=== PATIENT | female | born 1960 | race Caucasian/White ===

== ENCOUNTER 2019-06-07 14:49 | Emergency (ER) | payer MEDICARE, MEDICAID ==
[~2019-06-07] VITALS: Ht 172.7 cm; Wt 145.0 kg
[~2019-06-07 14:49] MED LIST: MELO-100 PO; PANT-47 PO; PROP40TA72 PO; VENL-190 PO
--- NOTE | 2019-06-07 14:57 | NUR ---
Spoke to Dr. Santos to see if we are calling it stroke alert, said no at this time since there are couple of things that's contributing to patient's symptoms.
[2019-06-07] MEDS ORDERED: diphenhydrAMINE 50 mg/ml inj IV ONE (15:05)
[2019-06-07] MEDS ORDERED: proCHLORperazine 10 MG/2 ml inj IV ONE (15:05)
--- NOTE | 2019-06-07 15:15 | NUR ---
Last seen normal was yesterday 1630, aware.
--- NOTE | 2019-06-07 15:18 | NUR ---
dr. ley at bedside,called level 1 stroke alert. Aylin Stroke RN at bedside.
[2019-06-07 15:29] LABS: BASOPHILS % (AUTO) 0.7 % (0-1); EOSINOPHILS # (AUTO) 0.1 X10'3 (0-0.9); EOSINOPHILS % (AUTO) 1.6 % (0-6); HEMATOCRIT 40.6 % (35.0-45.0); HEMOGLOBIN 13.6 g/dl (12.0-16.0); LYMPHOCYTES # (AUTO) 2.1 X10'3 (1.1-4.8); LYMPHOCYTES % (AUTO) 34.2 % (21-51); MEAN CORPUSCULAR HEMOGLOBIN 31.4 PG (27.0-31.0); MEAN CORPUSCULAR HGB CONC 33.5 g/dL (33.0-36.5); MEAN CORPUSCULAR VOLUME 93.5 FL (78-98); MEAN PLATELET VOLUME 7.8 FL (7.4-10.4); MONOCYTES # (AUTO) 0.5 X10'3 (0-0.9); MONOCYTES % (AUTO) 8.8 % (2-12); NEUTROPHILS # (AUTO) 3.3 X10'3 (1.8-7.7); NEUTROPHILS % (AUTO) 54.7 % (42-75); PLATELET COUNT 260 X10'3 (140-440); RED BLOOD COUNT 4.34 X10'6 (4.20-5.60); RED CELL DISTRIBUTION WIDTH 13.5 % (11.5-14.5); WHITE BLOOD COUNT 6.1 X10'3 (4.5-11.0)
--- NOTE | 2019-06-07 15:40 | NUR ---
BACK FROM MRI
[2019-06-07 15:41] LABS: ALANINE AMINOTRANSFERASE 22 U/L (12-78); ALBUMIN 3.4 G/DL (3.4-5.0); ALKALINE PHOSPHATASE 75 IU/L (46-116); ANION GAP 7 (8-16); ASPARTATE AMINO TRANSFERASE 10 U/L (10-37); BILIRUBIN,TOTAL 0.3 MG/DL (0.1-1.0); BLOOD UREA NITROGEN 23 MG/DL (7-18); BUN/CREATININE RATIO 18.7 (6.6-38.0); CHLORIDE 108 MMOL/L (99-107); CREATININE 1.23 MG/DL (0.40-0.90); GLUCOSE 87 MG/DL (70-104); POTASSIUM 4.8 MMOL/L (3.5-5.1); SODIUM 142 MMOL/L (135-145); TOTAL CARBON DIOXIDE 27.5 MMOL/L (24-32); TOTAL PROTEIN 6.9 G/DL (6.4-8.2); eGFR 45 ML/MIN
[2019-06-07] MEDS ORDERED: morphine 4 MG/ML inj SYRINge IV ONE (16:00)
[2019-06-07 16:10] LABS: URINE AMPHETAMINE SCREEN NEGATIVE (Neg); URINE BARBITUATE SCREEN NEGATIVE (Neg); URINE BENZODIAZEPINES SCREEN NEGATIVE (Neg); URINE CANNABINOID SCREEN NEGATIVE (Neg); URINE COCAINE SCREEN NEGATIVE (Neg); URINE METHADONE SCREEN NEGATIVE (Neg); URINE OPIATE SCREEN POSITIVE (Neg); URINE PHENCYCLIDINE SCREEN NEGATIVE (Neg)
[2019-06-07] MEDS ORDERED: NYSPWD TP (16:36)
[2019-06-07] MEDS ORDERED: NITR0.4T51 SL (16:37)
[2019-06-07] MEDS ORDERED: ASPI-611 PO (16:37)
[2019-06-07] MEDS ORDERED: MELO15TA13 PO (16:38)
[2019-06-07] MEDS ORDERED: LISI-600 PO (16:41)
[2019-06-07] MEDS ORDERED: CARB-87 PO (16:42)
[2019-06-07] MEDS ORDERED: GABA-532 PO (16:43)
[2019-06-07] MEDS ORDERED: DICL75TA5 PO (16:44)
[2019-06-07] MEDS ORDERED: VENL75CA61 PO (16:53)
[2019-06-07] MEDS ORDERED: CLOP75TA15 PO (17:01)
[2019-06-07] MEDS ORDERED: ATOR40TA72 PO (17:02)
[2019-06-07] MEDS ORDERED: CARV6.253 PO (17:02)
--- NOTE | 2019-06-07 18:09 | NUR ---
TELE NEURO HAS BEEN INITIATED
--- NOTE | 2019-06-07 18:32 | NUR ---
DR. PETTY" NEURO TELE ON SCREEN WITH DAUGHTER IN ROOM DR YANEZ STATES THAT HE BELIEVES HER SPEECH IS NOT DUE TO A STROKE, BUT MAY BE OF PYSCHIATRIC ORIGIN. PATIENT IS SOMEWHAT DROWSY AFTER RECEIVING BENADRYL, COMPAZINE AND MORPHINE: MD AWARE. HER SPEECH APPEARS FORCED.
[2019-06-07 19:35] VITALS: BP 132/72
== END 2019-06-07 19:38 | disposition home or self-care (01) ==
LOC: ER 14:50
DX: F44.4 Conversion disorder with motor symptom or deficit (principal); G43.909 Migraine, unspecified, not intractable, without status migrainosus; I25.10 Atherosclerotic heart disease of native coronary artery without angina pectoris; I10 Essential (primary) hypertension; E11.9 Type 2 diabetes mellitus without complications; M06.9 Rheumatoid arthritis, unspecified; Z86.14 Personal history of Methicillin resistant Staphylococcus aureus infection; Z88.6 Allergy status to analgesic agent; Z88.5 Allergy status to narcotic agent; Z79.82 Long term (current) use of aspirin; Z79.899 Other long term (current) drug therapy
CPT/HCPCS: 36415; 70450; 71045; 80053; 80305; 82948; 85025; 93005; 96374; 96375; 99284; J0780; J1200; J2270

== ENCOUNTER 2024-09-24 12:45 | Outpatient (CLI) | payer BC, MEDICAID ==
[~2024-09-24 12:45] MED LIST changes: +ASPI-611 PO; +ATOR40TA72 PO; +CARB-321 PO; +CARV6.253 PO; +CLOP75TA15 PO; +DICL75TA5 PO; +GABA-532 PO; +LISI20TA28 PO; -MELO-100 PO; +NITR0.4T51 SL; +NYSPWD TP; -PANT-47 PO; -PROP40TA72 PO; -VENL-190 PO; +VENL75CA61 PO
[2024-09-24 13:54] LABS: BASOPHILS % (AUTO) 0.5 % (0-1); EOSINOPHILS # (AUTO) 0.1 X10'3 (0-0.9); EOSINOPHILS % (AUTO) 0.9 % (0-6); HEMATOCRIT 42.9 % (35.0-45.0); LYMPHOCYTES # (AUTO) 2.4 X10'3 (1.1-4.8); LYMPHOCYTES % (AUTO) 30.8 % (21-51); MEAN CORPUSCULAR HGB CONC 32.6 g/dL (33.0-36.5); MEAN CORPUSCULAR VOLUME 91.9 FL (78-98); MEAN PLATELET VOLUME 7.1 FL (7.4-10.4); MONOCYTES # (AUTO) 0.6 X10'3 (0-0.9); MONOCYTES % (AUTO) 7.6 % (2-12); NEUTROPHILS # (AUTO) 4.7 X10'3 (1.8-7.7); NEUTROPHILS % (AUTO) 60.2 % (42-75); PLATELET COUNT 310 X10'3 (140-440); RED BLOOD COUNT 4.67 X10'6 (4.20-5.60); RED CELL DISTRIBUTION WIDTH 13.5 % (11.5-14.5); WHITE BLOOD COUNT 7.8 X10'3 (4.5-11.0)
[2024-09-24] MEDS ORDERED: CYCL1DRO2 EACHEYE (13:56)
[2024-09-24] MEDS ORDERED: ALBU18HF2 INH (13:56)
[2024-09-24] MEDS ORDERED: HYDR-3686 PO (13:56)
[2024-09-24] MEDS ORDERED: HYDR12.55 PO (13:56)
[2024-09-24] MEDS ORDERED: SEMA0.253 SQ (13:56)
[2024-09-24 14:13] LABS: ALANINE AMINOTRANSFERASE 21 U/L (12-78); ALBUMIN 3.6 G/DL (3.4-5.0); ALBUMIN/GLOBULIN RATIO 0.8 (1.1-1.5); ALKALINE PHOSPHATASE 78 IU/L (46-116); ANION GAP 8 (8-16); ASPARTATE AMINO TRANSFERASE 18 U/L (10-37); BILIRUBIN,TOTAL 0.5 MG/DL (0.1-1.0); BLOOD UREA NITROGEN 24 MG/DL (7-18); CHLORIDE 106 MMOL/L (99-107); CREATININE 0.96 MG/DL (0.40-0.90); GLUCOSE 105 MG/DL (70-104); POTASSIUM 4.1 MMOL/L (3.5-5.1); SODIUM 138 MMOL/L (135-145); TOTAL CARBON DIOXIDE 24.2 MMOL/L (24-32); TOTAL PROTEIN 7.9 G/DL (6.4-8.2); eGFR 59 ML/MIN
== END 2024-09-24 23:59 | disposition home or self-care (01) ==
LOC: LAB 12:45 → EDSTATUS 10-07 07:30
PROVIDERS: ATTEND Orthopaedic Surgery
DX: Z01.818 Encounter for other preprocedural examination (principal); M17.11 Unilateral primary osteoarthritis, right knee; I10 Essential (primary) hypertension; I25.2 Old myocardial infarction; Z79.82 Long term (current) use of aspirin; Z95.5 Presence of coronary angioplasty implant and graft; E66.01 Morbid (severe) obesity due to excess calories; Z68.41 Body mass index [BMI] 40.0-44.9, adult; Z88.6 Allergy status to analgesic agent; Z88.8 Allergy status to other drugs, medicaments and biological substances; Z98.890 Other specified postprocedural states; Z79.899 Other long term (current) drug therapy
CPT/HCPCS: 36415; 71046; 80053; 85025; 87081